=== PATIENT | male | born 1990 | race African-American/Black ===

== ENCOUNTER 2019-08-15 03:54 | Emergency (ER) | payer OTHER, SELFPAY ==
--- NOTE | ~2019-08-15 | XR_ITS ---
XR chest 2V DATE: 08/15/2019 04:22 INDICATION: Generalized chest pain. Shortness of breath. Hypertension. TECHNIQUE: PA and lateral views COMPARISON: 12/30/2016 PA and lateral chest FINDINGS: Normal heart size. No hilar or mediastinal enlargement. No pulmonary infiltrate or consolid ation, pleural effusion or pulmonary vascular congestion or pneumothorax. IMPRESSION: Negative Reviewed, dictated and finalized at location A. IMPRESSION: Negative
[2019-08-15 03:59] VITALS: BP 133/99; PULSE 85; RESP 12; TEMP 36.9; O2SAT 100
--- NOTE | 2019-08-15 04:04 | ECG_ITS ---
Measurements Intervals [place] Rate: 91 P: 73 [place]: 143 QRS: 55 QRSD: 107 T: 41 QT: 366 QTc: 452 Interpretive Statements SINUS RHYTHM POSSIBLE LEFT ATRIAL ENLARGEMENT INCOMPLETE RIGHT BUNDLE BRANCH BLOCK POSSIBLE LEFT VENTRICULAR HYPERTROPHY DELAYED PRECORDIAL R/S TRANSITION NONSPECIFIC ST & T-WAVE ABNORMALITY- INFERIOR LEADS BORDERLINE ECG Electronically Signed On 08-15-2019 7:14:27 CDT by Ricki Hernandez D.O.
[2019-08-15 04:06] VITALS: PULSE 81
[2019-08-15] MEDS: ASPIRIN 81 MG CHEWABLE TABLET 324 MG PO (04:10)
[2019-08-15 04:23] LABS: Basophils Percent Auto 0.4 % (0.2-1.2); Eosinophils Percent Auto 0.3 % (0-4.4); Hematocrit 44.5 % (42.0-52.0); Hemoglobin 15.3 g/dL (14.0-18.0); Immature Granulocyte Absolute 0.03 K/mm3 (0.00-0.031); Immature Granulocyte Percent A 0.3 % (0-0.5); Lymphocytes Absolute Auto 3.29 K/mm3 (0.9-3.2); Lymphocytes Percent Auto 31.6 % (18.3-44.2); Mean Corpuscular HGB Conc 34.4 g/dl (32-36); Mean Corpuscular Hemoglobin 30.7 pg (26-34); Mean Corpuscular Volume 89.4 fl (80-100); Mean Platelet Volume 9.6 fl (7.4-10.4); Monocytes Absolute Auto 1.2 K/mm3 (0.1-0.6); Monocytes Percent Auto 11.8 % (2.6-8.5); Neutrophils Absolute Auto 5.8 K/mm3 (1.3-6.7); Neutrophils Percent Auto 55.6 % (45.5-73.1); Platelet Count Result 256 k/mm3 (150-375); Red Blood Count 4.98 M/mm3 (4.6-6.20); Red Cell Distribution Width 13.3 % (11.5-14.5); White Blood Count 10.4 K/mm3 (4.5-10.0)
[2019-08-15 04:41] LABS: Blood Urea Nitrogen 8 mg/dL (9-20); Calcium 9.8 mg/dL (8.4-10.2); Carbon Dioxide 22 mmol/L (22-30); Chloride 107 mmol/L (98-107); Estimated CRCL calculation 91 ml/min; Estimated Glomerular Filt Rate > 60; Glucose 104 mg/dL (75-110); Sodium 139 mmol/L (137-145)
[2019-08-15 04:42] LABS: Prothrombin Time 12.9 Seconds (11.1-14.7)
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
[2019-08-15 04:53] LABS: Troponin I < 0.012 ng/mL (0.000-0.034)
[2019-08-15 05:09] LABS: Alveolar/Arterial O2 Gradient 38.3 mmHg; Base Excess ABG -2.8 mEq/l (+/-2.0); Fractional Inspired Oxygen 21 %; HCO3 ABG 19.8 mEq/l (22.0-26.0); Oxygen Content ABG 19.9 %vol (16.0-22.0); Oxyhemoglobin 94.1 % THb (90.0-100.0); PCO2 ABG 29.1 mmHg (35.0-45.0); PO2 ABG 76.6 mmHg (80.0-100.0); PO2 FiO2 Ratio Arterial Blood 3.65 %; pH ABG 7.451 (7.350-7.450)
[2019-08-15] MEDS: ALBUTEROL SULFATE NEB 2.5 MG/0.5 ML INH 5 MG INHALATION (05:13)
[2019-08-15 05:17] VITALS: PULSE 77; RESP 14
[2019-08-15 05:22] VITALS: PULSE 79; RESP 14
[2019-08-15 05:35] VITALS: BP 138/96; PULSE 98; RESP 17; O2SAT 100
== END 2019-08-15 05:35 | disposition home or self-care (01) ==
PROVIDERS: Emergency Provider Emergency Medicine
DX: J45.21 Mild intermittent asthma with (acute) exacerbation (principal); Z87.891 Personal history of nicotine dependence; I45.10 Unspecified right bundle-branch block; R94.31 Abnormal electrocardiogram [ECG] [EKG]
CPT/HCPCS: 36415; 36600; 71046; 80048; 82805; 84484; 85025; 85610; 85730; 93005; 94640; 99284; A9270

== ENCOUNTER 2019-11-21 03:53 | Emergency (ER) | payer OTHER, SELFPAY ==
[2019-11-21 03:57] VITALS: BP 145/83; PULSE 58; RESP 18; TEMP 36.3; O2SAT 100
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
[2019-11-21 04:47] VITALS: BP 139/68; PULSE 62; RESP 18; O2SAT 98
== END 2019-11-21 04:50 | disposition home or self-care (01) ==
LOC: ANHED 04:32
PROVIDERS: Emergency Provider Emergency Medicine
DX: L23.7 Allergic contact dermatitis due to plants, except food (principal); Z87.891 Personal history of nicotine dependence
CPT/HCPCS: 96374; 99284; J1100

== ENCOUNTER 2020-01-25 17:38 | Emergency (ER) | payer OTHER, SELFPAY ==
--- NOTE | ~2020-01-25 | XR_ITS ---
XR foot LT min 3V DATE: 01/25/2020 17:50 INDICATION: Dorsal lateral pain after branch crushed foot TECHNIQUE: 4 views COMPARISON: None FINDINGS: No fracture or dislocation, periosteal reaction or bone destruction. IMPRESSION: Negative Reviewed, dictated and finalized at location B. 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
[2020-01-25 17:51] VITALS: BP 125/71; PULSE 78; RESP 16; TEMP 36.5; O2SAT 100
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
== END 2020-01-25 18:29 | disposition home or self-care (01) ==
PROVIDERS: Emergency Provider Nurse Practitioner Family
DX: S93.602A Unspecified sprain of left foot, initial encounter (principal); W20.8XXA Other cause of strike by thrown, projected or falling object, initial encounter; J45.909 Unspecified asthma, uncomplicated
CPT/HCPCS: 73630; 99213; G0463

== ENCOUNTER 2020-03-07 19:04 | Emergency (ER) | payer OTHER, SELFPAY ==
--- NOTE | ~2020-03-07 | XR_ITS ---
EXAMINATION: XR chest 1V portable INDICATION: Fever and shortness of breath TECHNIQUE: Portable AP chest at 2006 hours COMPARISON: 08/15/2019 FINDINGS: The lungs are free of acute opacities. There is no pleural effusion or pneumothorax. The ca rdiomediastinal silhouette is normal. The visualized bones and soft tissues are unremarkable. IMPRESSION: 1. No acute cardiopulmonary abnormality. Reviewed, dictated and finalized at location A. 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
[2020-03-07 19:10] VITALS: BP 141/84; PULSE 85; RESP 17; TEMP 37.8; O2SAT 100
[2020-03-07 19:43] LABS: Basophils Percent Auto 0.3 % (0.2-1.2); Eosinophils Percent Auto 0.3 % (0-4.4); Hematocrit 43.6 % (42.0-52.0); Hemoglobin 14.5 g/dL (14.0-18.0); Immature Granulocyte Absolute 0.02 K/mm3 (0.00-0.031); Immature Granulocyte Percent A 0.3 % (0-0.5); Lymphocytes Absolute Auto 1.36 K/mm3 (0.9-3.2); Lymphocytes Percent Auto 21.6 % (18.3-44.2); Mean Corpuscular HGB Conc 33.3 g/dl (32-36); Mean Corpuscular Hemoglobin 29.8 pg (26-34); Mean Corpuscular Volume 89.7 fl (80-100); Mean Platelet Volume 9.3 fl (7.4-10.4); Monocytes Absolute Auto 1.2 K/mm3 (0.1-0.6); Monocytes Percent Auto 19.1 % (2.6-8.5); Neutrophils Absolute Auto 3.7 K/mm3 (1.3-6.7); Neutrophils Percent Auto 58.4 % (45.5-73.1); Platelet Count Result 203 k/mm3 (150-375); Red Blood Count 4.86 M/mm3 (4.6-6.20); Red Cell Distribution Width 13.2 % (11.5-14.5); White Blood Count 6.3 K/mm3 (4.5-10.0)
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
[2020-03-07 19:54] LABS: Alanine Aminotransferase 21 U/L (4-50); Albumin Level 4.1 g/dL (3.5-5.1); Alkaline Phosphatase 67 U/L (38-126); Anion Gap 8 mmol/L (8-16); Aspartate Amino Transferase 32 U/L (17-59); Bilirubin,Total 0.3 mg/dL (0.2-1.3); Blood Urea Nitrogen 9 mg/dL (9-20); Carbon Dioxide 28 mmol/L (22-30); Chloride 101 mmol/L (98-107); Estimated Glomerular Filt Rate > 60; Glucose 97 mg/dL (75-110); Potassium 3.5 mmol/L (3.4-5.0); Sodium 137 mmol/L (137-145)
[2020-03-07 20:07] LABS: Add Urine Microscopic? YES; Appearance Urine Clear (Clear); Bacteria Urine Trace /hpf; Bilirubin Urine Negative (Negative); Blood Urine Negative (Negative); Color Urine Yellow (Yellow); Glucose Urine UA Negative (Negative); Ketones Urine 1+ mg/dL (Negative); Leukocyte Esterase Ur Negative LEU/UL (Negative); Mucus Urine Rare /lpf; Nitrate Urine Negative (Negative); Protein Urine Negative (Negative); RBC Urine 0-2 /hpf (0-2); Specific Grav Ur 1.011 (1.001-1.035); Urobilinogen Urine Negative mg/dL (<2.0); WBC Urine 0-3 /hpf
[2020-03-07 21:33] VITALS: BP 143/65; PULSE 88; RESP 17; TEMP 37.7; O2SAT 99
[2020-03-08 18:44] LABS: SARS-CoV-2 RNA PCR Positive
== END 2020-03-07 21:37 | disposition home or self-care (01) ==
PROVIDERS: Emergency Provider Emergency Medicine
DX: U07.1 COVID-19 (principal); R51.9 Headache, unspecified; K64.4 Residual hemorrhoidal skin tags; J45.909 Unspecified asthma, uncomplicated
CPT/HCPCS: 36415; 71045; 80053; 81001; 85025; 87081; 87635; 87880; 99283; C9803; U0003

== ENCOUNTER 2021-06-15 22:57 | Emergency (ER) | payer OTHER, SELFPAY ==
[2021-06-15 23:00] VITALS: BP 156/76; PULSE 82; RESP 18; TEMP 37.2; O2SAT 100
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
[2021-06-15 23:21] LABS: Basophils Percent Auto 0.2 % (0.2-1.2); Eosinophils Percent Auto 0.6 % (0-4.4); Hematocrit 38.7 % (42.0-52.0); Hemoglobin 12.1 g/dL (14.0-18.0); Immature Granulocyte Absolute 0.01 K/mm3 (0.00-0.031); Immature Granulocyte Percent A 0.2 % (0-0.5); Lymphocytes Absolute Auto 0.98 K/mm3 (0.9-3.2); Lymphocytes Percent Auto 14.8 % (18.3-44.2); Mean Corpuscular HGB Conc 31.3 g/dl (32-36); Mean Corpuscular Hemoglobin 26.2 pg (26-34); Mean Corpuscular Volume 83.9 fl (80-100); Mean Platelet Volume 9.3 fl (7.4-10.4); Monocytes Absolute Auto 0.7 K/mm3 (0.1-0.6); Monocytes Percent Auto 10.9 % (2.6-8.5); Neutrophils Absolute Auto 4.9 K/mm3 (1.3-6.7); Neutrophils Percent Auto 73.3 % (45.5-73.1); Platelet Count Result 271 k/mm3 (150-375); Red Blood Count 4.61 M/mm3 (4.6-6.20); Red Cell Distribution Width 14.5 % (11.5-14.5); White Blood Count 6.6 K/mm3 (4.5-10.0)
[2021-06-15] MEDS: SODIUM CHLORIDE 0.9% IV 1,000 ML 999 ML IV CONT (23:22)
[2021-06-15] MEDS: HYDROmorphone HCL INJ (*CRX) 1 MG/ML SYR 0.5 MG IV PUSH (23:22)
[2021-06-15] MEDS: ONDANSETRON INJ 4 MG/2 ML VIAL IV PUSH (23:22)
[2021-06-15 23:26] LABS: Add Urine Microscopic? YES; Appearance Urine Clear (Clear); Bilirubin Urine Negative (Negative); Blood Urine Negative (Negative); Color Urine Yellow (Yellow); Glucose Urine UA Negative (Negative); Ketones Urine 1+ mg/dL (Negative); Leukocyte Esterase Ur Negative LEU/UL (Negative); Nitrate Urine Negative (Negative); Protein Urine Negative (Negative); Specific Grav Ur 1.009 (1.001-1.035); Squamous Epithelial Cell Urine Rare /hpf (Few); Urobilinogen Urine Negative mg/dL (<2.0); WBC Urine 0-3 /hpf
[2021-06-15 23:32] VITALS: BP 113/48; PULSE 61; RESP 13; O2SAT 100
[2021-06-15 23:34] LABS: Alanine Aminotransferase 29 U/L (4-50); Albumin Level 4.5 g/dL (3.5-5.1); Alkaline Phosphatase 84 U/L (38-126); Anion Gap 8 mmol/L (8-16); Aspartate Amino Transferase 46 U/L (17-59); Bilirubin,Total 0.6 mg/dL (0.2-1.3); Blood Urea Nitrogen 7 mg/dL (9-20); Calcium 8.8 mg/dL (8.4-10.2); Carbon Dioxide 27 mmol/L (22-30); Chloride 102 mmol/L (98-107); Estimated CRCL calculation 90 ml/min; Estimated Glomerular Filt Rate > 60; Glucose 107 mg/dL (65-110); Lipase 68 U/L (23-300); Potassium 3.3 mmol/L (3.4-5.0); Sodium 137 mmol/L (137-145)
[2021-06-15 23:46] VITALS: BP 126/70; PULSE 68; RESP 14; O2SAT 100
[2021-06-16 00:02] VITALS: BP 134/76; PULSE 82; RESP 20; O2SAT 100
[2021-06-16 00:17] VITALS: BP 134/69; PULSE 60; RESP 17; O2SAT 100
[2021-06-16] MEDS: BELLADONNA ALK/PHENOB ELIX 10 ML, MAG HYDROX/ALUMINUM HYD/SIMETH 30 ML, LIDOCAINE HCL 2... PO (00:26)
[2021-06-16] MEDS: SODIUM CHLORIDE 0.9% IV 1,000 ML 999 ML IV CONT (00:28)
[2021-06-16 00:47] VITALS: BP 138/72; PULSE 72; RESP 18; O2SAT 99
[2021-06-16 01:02] VITALS: BP 146/75; PULSE 59; RESP 12; O2SAT 100
== END 2021-06-16 01:20 | disposition home or self-care (01) ==
PROVIDERS: Emergency Provider Emergency Medicine
DX: R11.2 Nausea with vomiting, unspecified (principal); R10.12 Left upper quadrant pain; J45.909 Unspecified asthma, uncomplicated
CPT/HCPCS: 36415; 80053; 81001; 83690; 85025; 96361; 96374; 96375; 99284; A9270; J1170; J2405; J7030

== ENCOUNTER 2021-11-11 07:34 | Emergency (ER) | payer OTHER, SELFPAY ==
--- NOTE | ~2021-11-11 | XR_ITS ---
EXAMINATION: XR femur RT min 2V DATE: 11/11/2021 10:26 INDICATION: Right leg feels heavy lifting the leg post fall. TECHNIQUE: AP and lateral views of the right femur were obtained on overlapping proximal and distal i mages. COMPARISON: None. FINDINGS: Bone alignment is normal. No fracture. Joint spaces are normal. Small right os acetabulum. Excreted c ontrast in the bladder from earlier contrast-enhanced CT. Soft tissues are unremarkable. IMPRESSION: 1. No acute osseous abnormality. Reviewed, dictated and finalized at location A.
--- NOTE | ~2021-11-11 | CT_ITS ---
EXAMINATION: CT brain wo con DATE: 11/11/2021 09:43 INDICATION: Loss of consciousness post 12 foot fall 3 days prior. TECHNIQUE: Computed tomography (CT) of the head was performed without intravenous contrast. Sagittal and coronal reconstructions were performed. The mA was adjusted according to patient size. Iterative reconstruction technique was employed. The dose-length product was 681.00 mGy-cm. COMPARISON: head CT dated 11/12/2006 FINDINGS: No fracture. No acute intracranial hemorrhage, acute infarction or abnormal extra axial fluid collect ion. Ventricles are normal and symmetric. No mass/mass effect. The orbits, paranasal sinuses and mast oid air cells are normal. IMPRESSION: 1. Normal brain. No fracture or acute intracranial process. Reviewed, dictated and finalized at location A.
--- NOTE | ~2021-11-11 | XR_ITS ---
EXAMINATION: [id number]_[id number] DATE: 11/11/2021 08:31 INDICATION: Anterior right lower rib pain post fall TECHNIQUE: PA view of the chest and 3 views of the right ribs were obtained. COMPARISON: Chest radiograph dated FINDINGS: Bilateral paired 13th ribs with hypoplastic riblets at a transitional thoracolumbar segment. No rib f ractures identified. Lungs are clear with no focal airspace opacities, pulmonary edema, pleural effus ion or pneumothorax. Cardiomediastinal silhouette is normal. IMPRESSION: 1. No rib fracture or acute cardiopulmonary disease. Reviewed, dictated and finalized at location A.
--- NOTE | ~2021-11-11 | CT_ITS ---
EXAMINATION: CT abdomen pelvis w con DATE: 11/11/2021 09:42 INDICATION: 12 foot fall with loss of consciousness and right upper quadrant abdominal pain. TECHNIQUE: Computed tomography (CT) of the abdomen and pelvis was performed with 100 mL Omnipaque-350 intravenous contrast. Automated exposure control and iterative reconstruction technique were employe d. The dose-length product was 1055.65 mGy-cm. COMPARISON: CT dated 05/29/2011 FINDINGS: Minimal dependent atelectasis in bilateral lower lobes. Heart size is normal. No pericardial or pleur al effusion. Liver, gallbladder, pancreas, bilateral adrenal glands and kidneys are normal. Normal sp ry with several unchanged small splenules along the caudal tip . Bladder and prostate are normal. B owels including the appendix are normal. No free intraperitoneal gas or fluid. No pathologically enla rged abdominal or pelvic lymphadenopathy. Bilateral hypoplastic riblets at L1 with partially lumbariz ed S1 segment. No fractures. IMPRESSION: 1. No fracture or acute intra-abdominal/pelvic process. Reviewed, dictated and finalized at location A.
--- NOTE | ~2021-11-11 | XR_ITS ---
EXAMINATION: XR hand LT min 3V, XR hand RT min 3V DATE: 11/11/2021 08:31 INDICATION: Bilateral hand pain post fall TECHNIQUE: 1. Posteroanterior, oblique and lateral views of the left hand were obtained. 2. Posteroanterior, oblique and lateral views of the right hand were obtained. COMPARISON: Left wrist radiographs dated 07/24/2006 FINDINGS: 2 mm ulnar positive variance at both the left and right wrists. Small minimally displaced fracture at the ulnar base of the left fifth metacarpal with mild surrounding soft tissue swelling. No other fra ctures identified. Chronic lucent lesions at the left scaphoid and lunate which have been present sin 2006 almost certainly benign. IMPRESSION: 1. Small minimally displaced intra-articular fracture at the ulnar base of the left fifth metacarpal. 2. No acute osseous abnormalities at the right hand. Reviewed, dictated and finalized at location A. IMPRESSION: 1. Small minimally displaced intra-articular fracture at the ulnar base of the left fifth metacarpal. 2. No acute osseous abnormalities at the right hand.
[2021-11-11 07:40] VITALS: BP 149/99; PULSE 74; RESP 18; TEMP 36.4; O2SAT 100
[2021-11-11 08:27] LABS: Basophils Percent Auto 0.5 % (0.2-1.2); Eosinophils Absolute Auto 0.4 K/mm3 (0-0.3); Eosinophils Percent Auto 6.8 % (0-4.4); Hematocrit 30.7 % (42.0-52.0); Immature Granulocyte Absolute 0.01 K/mm3 (0.00-0.031); Immature Granulocyte Percent A 0.2 % (0-0.5); Lymphocytes Absolute Auto 1.84 K/mm3 (0.9-3.2); Lymphocytes Percent Auto 33.7 % (18.3-44.2); Mean Corpuscular HGB Conc 29.3 g/dl (32-36); Mean Corpuscular Hemoglobin 23.1 pg (26-34); Mean Corpuscular Volume 78.7 fl (80-100); Mean Platelet Volume 9.4 fl (7.4-10.4); Monocytes Absolute Auto 0.6 K/mm3 (0.1-0.6); Monocytes Percent Auto 10.8 % (2.6-8.5); Neutrophils Absolute Auto 2.6 K/mm3 (1.3-6.7); Platelet Count Result 283 k/mm3 (150-375); Red Cell Distribution Width 15.8 % (11.5-14.5); White Blood Count 5.5 K/mm3 (4.5-10.0)
[2021-11-11 08:37] LABS: Alanine Aminotransferase 24 U/L (6-50); Alkaline Phosphatase 59 U/L (38-126); Anion Gap 4 mmol/L (8-16); Aspartate Amino Transferase 49 U/L (17-59); Bilirubin,Total 0.2 mg/dL (0.2-1.3); Blood Urea Nitrogen 11 mg/dL (9-20); Calcium 9.1 mg/dL (8.4-10.2); Carbon Dioxide 28 mmol/L (22-30); Chloride 108 mmol/L (98-107); Estimated CRCL calculation 97 ml/min; Estimated Glomerular Filt Rate > 60; Glucose 105 mg/dL (65-110); Potassium 4.6 mmol/L (3.4-5.0); Sodium 140 mmol/L (137-145)
[2021-11-11 08:45] VITALS: RESP 18; O2SAT 100
[2021-11-11 08:48] LABS: Appearance Urine Clear (Clear); Bilirubin Urine Negative (Negative); Blood Urine Negative (Negative); Color Urine Yellow (Yellow); Glucose Urine UA Negative (Negative); Ketones Urine Negative (Negative); Leukocyte Esterase Ur Negative LEU/UL (Negative); Nitrate Urine Negative (Negative); Protein Urine Negative (Negative); Urobilinogen Urine 0.2 mg/dL (<2.0)
[2021-11-11 08:49] LABS: Add Urine Microscopic? NO
[2021-11-11 08:52] LABS: Hypochromasia 1+ (NORMAL); Ovalocytes 1+ (NORMAL); Platelet Estimate Adequate (Adequate); Schistocytes 1+ (NORMAL)
[2021-11-11 09:05] VITALS: BP 119/49; PULSE 81; RESP 18; O2SAT 100
[2021-11-11] MEDS: KETOROLAC 30 MG/ML VIAL (*BKC) IV PUSH (10:12)
--- NOTE | 2021-11-11 11:02 | PC.NURSE ---
Assumed pt care JESSY Barba
[2021-11-11 11:15] VITALS: BP 136/84; PULSE 54; O2SAT 100
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
[2021-11-11] MEDS: TETANUS,DIPHTHERIA,AC PERTUSSIS ADULT (0.5 ML) BOOSTRIX IM (11:52)
[2021-11-11 12:32] VITALS: BP 158/72; PULSE 61; RESP 14; O2SAT 100
== END 2021-11-11 12:35 | disposition home or self-care (01) ==
PROVIDERS: Emergency Provider Emergency Medicine
DX: S62.317A Displaced fracture of base of fifth metacarpal bone, left hand, initial encounter for closed fracture (principal); S50.312A Abrasion of left elbow, initial encounter; M54.50 Low back pain, unspecified; S80.11XA Contusion of right lower leg, initial encounter; D64.9 Anemia, unspecified; J45.909 Unspecified asthma, uncomplicated; W14.XXXA Fall from tree, initial encounter; Z23 Encounter for immunization
CPT/HCPCS: 29125; 36415; 70450; 71101; 73130; 73552; 74177; 80053; 81003; 85025; 90471; 90715; 96374; 99284; J1885; Q9967

== ENCOUNTER 2021-12-19 17:01 | Emergency (ER) | payer OTHER, SELFPAY ==
[2021-12-19 17:06] VITALS: BP 157/42; PULSE 71; RESP 20; TEMP 36.8; O2SAT 100
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
[2021-12-19 18:39] LABS: Basophils Percent Auto 0.2 % (0.2-1.2); Eosinophils Percent Auto 0.1 % (0-4.4); Hemoglobin 10.3 g/dL (14.0-18.0); Immature Granulocyte Absolute 0.02 K/mm3 (0.00-0.031); Immature Granulocyte Percent A 0.2 % (0-0.5); Lymphocytes Absolute Auto 1.82 K/mm3 (0.9-3.2); Lymphocytes Percent Auto 22.4 % (18.3-44.2); Mean Corpuscular HGB Conc 29.4 g/dl (32-36); Mean Corpuscular Hemoglobin 22.7 pg (26-34); Mean Corpuscular Volume 77.3 fl (80-100); Mean Platelet Volume 9.4 fl (7.4-10.4); Monocytes Absolute Auto 0.9 K/mm3 (0.1-0.6); Monocytes Percent Auto 10.7 % (2.6-8.5); Neutrophils Absolute Auto 5.4 K/mm3 (1.3-6.7); Neutrophils Percent Auto 66.4 % (45.5-73.1); Platelet Count Result 289 k/mm3 (150-375); Red Blood Count 4.53 M/mm3 (4.6-6.20); Red Cell Distribution Width 17.8 % (11.5-14.5); White Blood Count 8.1 K/mm3 (4.5-10.0)
[2021-12-19 18:48] LABS: Alanine Aminotransferase 26 U/L (6-50); Albumin Level 4.6 g/dL (3.5-5.1); Alkaline Phosphatase 73 U/L (38-126); Anion Gap 9 mmol/L (8-16); Aspartate Amino Transferase 42 U/L (17-59); Bilirubin,Total 0.6 mg/dL (0.2-1.3); Blood Urea Nitrogen 8 mg/dL (9-20); Calcium 9.1 mg/dL (8.4-10.2); Carbon Dioxide 28 mmol/L (22-30); Chloride 102 mmol/L (98-107); Estimated CRCL calculation 82 ml/min; Estimated Glomerular Filt Rate > 60; Glucose 110 mg/dL (65-110); Potassium 3.9 mmol/L (3.4-5.0); Sodium 139 mmol/L (137-145)
[2021-12-19 19:03] LABS: Hypochromasia 1+ (NORMAL); Platelet Estimate Adequate (Adequate)
[2021-12-19 19:04] LABS: Ovalocytes 1+ (NORMAL); Poikilocytosis 1+ (NORMAL)
[2021-12-19 19:07] LABS: Burr Cells 1+ (NORMAL); Schistocytes None Seen (NORMAL)
== END 2021-12-19 19:32 | disposition home or self-care (01) ==
LOC: ANHED 19:25
PROVIDERS: Emergency Provider Nurse Practitioner Family
DX: R50.9 Fever, unspecified (principal); J45.909 Unspecified asthma, uncomplicated
CPT/HCPCS: 36415; 80053; 85025; 99283

== ENCOUNTER 2022-05-19 09:17 | Emergency (ER) | payer OTHER, SELFPAY ==
--- NOTE | ~2022-05-19 | CT_ITS ---
EXAMINATION: CT abdomen pelvis w con DATE: 05/19/2022 11:07 INDICATION: Epigastric and abdominal pain TECHNIQUE: Computed tomography (CT) of the abdomen and pelvis was performed with 100 mL Omnipaque-350 intravenous contrast. Automated exposure control and iterative reconstruction technique were employe d. The dose-length product was 865.78 mGy-cm. COMPARISON: 12/08/2021 FINDINGS: Lung bases are clear. Heart size is normal. No pericardial or pleural effusion. Small sliding-type hi atal hernia. Focal hepatic steatosis at the ligamentum teres. Liver, gallbladder, spleen, pancreas, b ilateral adrenal glands and kidneys are normal. Normal appendix. There is fluid throughout multiple n ondilated loops of large bowel as well as in the proximal colon consistent with diarrhea. No abnormal bowel wall thickening or obstruction. Bladder is normal. No free intraperitoneal gas or fluid. Bilat eral hypoplastic riblets at a transitional thoracolumbar segment which will be designated L1 with 12 more cephalad paired rib-bearing thoracic segments on radiograph dated 11/11/2021. Partially lumbarized S1 segment with 4 intervening nonrib-bearing lumbar segments. IMPRESSION: 1. Fluid in the colon and multiple loops of nondilated small bowel consistent with diarrhea. Correlat e clinically for possible gastroenteritis. 2. Small sliding-type hiatal hernia. Reviewed, dictated and finalized at location A. GER TRANSFUSION IMPRESSION: 1. Fluid in the colon and multiple loops of nondilated small bowel consistent w ith diarrhea. Correlate clinically for possible gastroenteritis. 2. Small sliding-type hiatal hernia.
[2022-05-19 09:20] VITALS: BP 122/65; PULSE 73; RESP 20; TEMP 36.6; O2SAT 100
[2022-05-19 09:54] VITALS: BP 157/72; PULSE 69; RESP 14; O2SAT 100
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
[2022-05-19] MEDS: SODIUM CHLORIDE 0.9% IV 1,000 ML 999 ML IV CONT (10:25)
[2022-05-19] MEDS: PANTOPRAZOLE SODIUM IV 40 MG VIAL IV PUSH (10:25)
[2022-05-19] MEDS: BELLADONNA ALK/PHENOB ELIX 10 ML, MAG HYDROX/ALUMINUM HYD/SIMETH 30 ML, LIDOCAINE HCL 2... PO (10:26)
[2022-05-19 10:35] LABS: Basophils Percent Auto 0.1 % (0.2-1.2); Eosinophils Absolute Auto 0.1 K/mm3 (0-0.3); Hematocrit 41.5 % (42.0-52.0); Hemoglobin 12.8 g/dL (14.0-18.0); Immature Granulocyte Absolute 0.03 K/mm3 (0.00-0.031); Immature Granulocyte Percent A 0.3 % (0-0.5); Lymphocytes Absolute Auto 0.99 K/mm3 (0.9-3.2); Lymphocytes Percent Auto 11.1 % (18.3-44.2); Mean Corpuscular HGB Conc 30.8 g/dl (32-36); Mean Corpuscular Hemoglobin 25.6 pg (26-34); Mean Platelet Volume 9.2 fl (7.4-10.4); Monocytes Absolute Auto 0.5 K/mm3 (0.1-0.6); Monocytes Percent Auto 5.7 % (2.6-8.5); Neutrophils Absolute Auto 7.3 K/mm3 (1.3-6.7); Neutrophils Percent Auto 81.8 % (45.5-73.1); Platelet Count Result 272 k/mm3 (150-375); White Blood Count 8.9 K/mm3 (4.5-10.0)
[2022-05-19 10:46] LABS: Lactic Acid Reflex 0.9 mmol/L (0.7-2.0)
[2022-05-19 10:47] LABS: Alanine Aminotransferase 27 U/L (6-50); Albumin Level 4.3 g/dL (3.5-5.1); Alkaline Phosphatase 82 U/L (38-126); Anion Gap 5 mmol/L (8-16); Aspartate Amino Transferase 33 U/L (17-59); Bilirubin,Total 0.6 mg/dL (0.2-1.3); Blood Urea Nitrogen 13 mg/dL (9-20); Calcium 8.8 mg/dL (8.4-10.2); Carbon Dioxide 27 mmol/L (22-30); Chloride 108 mmol/L (98-107); Estimated CRCL calculation 89 ml/min; Estimated Glomerular Filt Rate > 60; Glucose 110 mg/dL (65-110); Lipase 48 U/L (23-300); Potassium 4.3 mmol/L (3.4-5.0); Sodium 140 mmol/L (137-145)
[2022-05-19 12:16] VITALS: BP 129/78; PULSE 67; RESP 18; O2SAT 100
== END 2022-05-19 12:18 | disposition home or self-care (01) ==
PROVIDERS: Emergency Provider Emergency Medicine
DX: R10.13 Epigastric pain (principal); J45.909 Unspecified asthma, uncomplicated
CPT/HCPCS: 36415; 74177; 80053; 83605; 83690; 85025; 96361; 96374; 99284; A9270; C9113; J7030; Q9967